=== PATIENT | female | born 1980 | race African-American/Black ===

== ENCOUNTER 2016-11-24 14:15 | Emergency (ER) | payer SELFPAY | END 2016-11-24 14:20 | disposition left against medical advice (07) | LOC: ER 14:15 | DX: Z53.21 Procedure and treatment not carried out due to patient leaving prior to being seen by health care provider (principal) ==

== ENCOUNTER 2016-11-30 23:57 | Emergency (ER) | payer BC ==
--- NOTE | 2016-12-01 01:04 | ER Document Report ---
HPI - HPI Patient complains to provider of: left ear feels clogged Onset: Other - 3 wks Onset/Duration: Persistent Quality of pain: Achy Pain Level: 1 Context: Patient complains of her left ear feeling like it is clogged up. Patient has been using an [id number] ear irrigation solution without improvement of her symptoms. Patient denies any fever. Patient denies any recent swimming. Associated Symptoms: Earache. denies: Fever Exacerbated by: Denies Relieved by: Denies Similar symptoms previously: No Recently seen / treated by doctor: Yes - ROS ROS below otherwise negative: Yes Systems Reviewed and Negative: Yes All other systems reviewed and negative - CONSTITUTIONAL Constitutional: DENIES: Fever - EENT EENT: REPORTS: Ear Pain - GASTROINTESTINAL Gastrointestinal: DENIES: Nausea - DERM Skin Color: Normal Skin Problems: None Past Medical History - General Information source: Patient - Social History Smoking Status: Current Every Day Smoker Frequency of alcohol use: None Drug Abuse: None Occupation: [employer] Family History: Reviewed & Not Pertinent - Past Medical History Cardiac Medical History: Reports: Hx Hypertension Renal/ Medical History: Denies: Hx Peritoneal Dialysis Surgical Hx: Negative - Immunizations Hx Diphtheria, Pertussis, Tetanus Vaccination: No Vertical Provider Document - CONSTITUTIONAL Agree With Documented VS: Yes Exam Limitations: No Limitations General Appearance: WD/WN, No Apparent Distress - INFECTION CONTROL TRAVEL OUTSIDE OF THE [place] IN LAST 30 DAYS: No - HEENT HEENT: Atraumatic, Normocephalic. negative: Pharyngeal Exudate, Pharyngeal Tenderness, Pharyngeal Erythema - NECK Neck: Normal Inspection, Supple - RESPIRATORY Respiratory: No Respiratory Distress - BACK Back: Normal Inspection - MUSCULOSKELETAL/EXTREMETIES Musculoskeletal/Extremeties: MAEW - NEURO Level of Consciousness: Awake, Alert, Appropriate - DERM Integumentary: Warm, Dry, No Rash Course - Re-evaluation Re-evalutation: 12/01/16 01:42 Ear irrigated with warm water and peroxide, patient tolerated well. Cerumen cleared from left external auditory canal. Normal left TM Discharge - Discharge Clinical Impression: Excessive cerumen in left ear canal Condition: Stable Disposition: HOME, SELF-CARE Instructions: Cerumen Impaction ([facility]) Additional Instructions: Return immediately for any new or worsening symptoms Followup with your primary care provider, call tomorrow to make a followup appointment Referrals: [facility] [Provider Group] - Follow up as needed
== END 2016-12-01 01:47 | disposition home or self-care (01) ==
LOC: ER 23:57
DX: H61.22 Impacted cerumen, left ear (principal); F17.200 Nicotine dependence, unspecified, uncomplicated; I10 Essential (primary) hypertension
CPT/HCPCS: 99282

== ENCOUNTER 2018-06-02 21:08 | Emergency (ER) | payer SELFPAY ==
[2018-06-02 21:19] VITALS: BP 150/84
--- NOTE | 2018-06-02 21:47 | ER Document Report ---
ED General - General Chief Complaint: Cough Stated Complaint: COUGH/ABDOMINAL PAIN Time Seen by Provider: 06/02/18 21:44 Mode of Arrival: Ambulatory Information source: Patient TRAVEL OUTSIDE OF THE [place] IN LAST 30 DAYS: No - HPI Patient complains to provider of: Severe cough, chest, and stomachache Onset: Other - 2 days ago Onset/Duration: Gradual, Persistent Severity: None Associated symptoms: Body/muscle aches, Chills, Nonproductive cough, Fever. de nies: Diarrhea, Nausea, Vomiting Exacerbated by: Denies Relieved by: Denies Similar symptoms previously: No Recently seen / treated by doctor: No Notes: 37-year-old -[place] female with history of tobacco abuse coming in today with severe dry cough that is causing pain in her chest and her stomach. Had a few days of a prodrome of fever and myalgias and malaise. Over the past couple days the cough is developed and it is causing a lot of pain in her chest or stomach every time she coughs. She is not having any vomiting or diarrhea. - Related Data Allergies/Adverse Reactions: No Known Allergies Allergy (Unverified 06/06/11 06:26) Past Medical History - General Information source: Patient - Social History Smoking Status: Current Every Day Smoker Family History: Reviewed & Not Pertinent - Past Medical History Cardiac Medical History: Reports: Hx Hypertension Renal/ Medical History: Denies: Hx Peritoneal Dialysis - Immunizations Hx Diphtheria, Pertussis, Tetanus Vaccination: No Review of Systems - Review of Systems Notes: Constitutional: No fevers. No chills. EENT: No eye redness. No eye pain. No ear pain. No sore throat. Cardiovascular: No chest pain. No palpitations. Respiratory: Positive cough. No shortness of breath. No respiratory distress. Gastrointestinal: Positive abdominal pain. No nausea, vomiting, or diarrhea. Genitourinary: Atraumatic. No lesions. No pain. No discharge. Musculoskeletal: Atraumatic. No swelling. No deformities. Skin: No rash or lesions. Lymphatic: No swollen lymph nodes. Neurologic: No headache. No syncope. Psychiatric: No suicidal or homicidal ideation. Physical Exam - Vital signs Vitals: Temp Pulse Resp BP Pulse Ox 99.5 F 85 18 150/84 H 98 06/02/18 21:17 06/02/18 21:17 06/02/18 21:17 06/02/18 21:17 06/02/18 21:17 - Notes Notes: General: Well-developed, well-nourished. In no acute distress. Non-toxic appearing. Cardiac: Well-perfused. Regular rate and rhythm. No murmurs, rubs, or gallops. Pulmonary: No respiratory distress. No cyanosis. Bilateral lung fiels are clear to auscultation. Abdominal: Non-distended. Non-rigid. Bowels sounds are present in all four quadrants. No guarding or rebound. HEENT: Head is atraumatic. Conjunctivae not reddened. No tearing. PERRL. EOMI. Orbits atraumatic. No periorbital swelling or erythema. Oropharynx is without erythema, swelling, or exudates. Neck: Supple. No adenopathy. No meningismus. Dermatologic: Warm with good turgor. No rash. Atraumatic. Chest: Atraumatic. No chest wall tenderness to palpation. Musculoskeletal: Moves all extremities well. No range of motion deficits. no muscular or joint tenderness. No paraspinal muscle tenderness. no midline spinal tenderness or step-off. Genitourinary: Examination deferred Neurologic: No gross neurologic deficits. Psychiatric: Normal mood. Course - Vital Signs Vital signs: Temp Pulse Resp BP Pulse Ox 99.5 F 85 18 150/84 H 98 06/02/18 21:17 06/02/18 21:17 06/02/18 21:17 06/02/18 21:17 06/02/18 21:17 Discharge - Discharge Clinical Impression: Upper respiratory infection Qualifiers: URI type: unspecified URI Qualified Code(s): J06.9 - Acute upper respiratory infection, unspecified Condition: Good Disposition: HOME, SELF-CARE Instructions: Upper Respiratory Illness ([facility]) Prescriptions: Promethazine HCl/Codeine [Prometh-Codein 6.25-10 mg/5 ml] 5 ml PO Q6HP PRN #120 ml PRN Reason: Referrals: [facility] [Provider Group] - Follow up as needed
== END 2018-06-02 21:56 | disposition home or self-care (01) ==
LOC: ER 21:08
DX: J06.9 Acute upper respiratory infection, unspecified (principal); R05 Cough; R10.9 Unspecified abdominal pain; R07.9 Chest pain, unspecified; M79.10 Myalgia, unspecified site; R50.9 Fever, unspecified; R53.81 Other malaise; F17.200 Nicotine dependence, unspecified, uncomplicated; I10 Essential (primary) hypertension
CPT/HCPCS: 99283

== ENCOUNTER 2018-12-20 23:16 | Emergency (ER) | payer BC, OTHER ==
--- NOTE | 2018-12-21 01:16 | ER Document Report ---
ED General - General Chief Complaint: Sore Throat Stated Complaint: COUGH/EAR PAIN Time Seen by Provider: 12/21/18 01:07 Notes: Patient presents with 1 month of intermittent cough who is a daily smoker. She also states that she had a sore throat approximately 2 weeks ago. She noticed a submandibular swollen lymph node that is painful today and comes in for evaluation. She does not have any oral problems including no teeth pain or gum pain. No known medical problems does not take any medications on a daily basis 12/21/18 01:12 TRAVEL OUTSIDE OF THE [place] IN LAST 30 DAYS: No - Related Data Allergies/Adverse Reactions: No Known Allergies Allergy (Unverified 06/06/11 06:26) Past Medical History - Social History Smoking Status: Unknown if Ever Smoked Family History: Reviewed & Not Pertinent Patient has suicidal ideation: No Patient has homicidal ideation: No - Past Medical History Cardiac Medical History: Reports: Hx Hypertension Renal/ Medical History: Denies: Hx Peritoneal Dialysis - Immunizations Hx Diphtheria, Pertussis, Tetanus Vaccination: No Review of Systems - Review of Systems Constitutional: No symptoms reported EENT: See HPI Cardiovascular: No symptoms reported Respiratory: See HPI Gastrointestinal: No symptoms reported Genitourinary: No symptoms reported Female Genitourinary: No symptoms reported Musculoskeletal: No symptoms reported Skin: No symptoms reported Hematologic/Lymphatic: No symptoms reported Neurological/Psychological: No symptoms reported Physical Exam - Vital signs Vitals: Temp Pulse Resp BP Pulse Ox 97.5 F 97 16 151/85 H 94 12/20/18 23:41 12/20/18 23:41 12/20/18 23:41 12/20/18 23:41 12/20/18 23:41 - General General appearance: Appears well, Alert - HEENT Head: Normocephalic, Atraumatic Eyes: Normal Conjunctiva: Normal Cornea: Normal Extraocular movements intact: Yes Pupils: PERRL Ears: Normal Tympanic membrane: Normal Sinus: Normal Nasal: Normal Mouth/Lips: Normal, Other - No gingival abscesses no poor dentition or pain with tooth or gum palpation on the left. Mucous membranes: Normal Pharynx: Normal Neck: Other - Small submandibular lymph node that is tender to touch not erythematous or warm - Respiratory Respiratory status: No respiratory distress Chest status: Nontender Breath sounds: Normal Chest palpation: Normal Course - Re-evaluation Re-evalutation: 12/21/18 01:11 12/21/18 01:13 Well-appearing patient with small shotty tender submandibular lymph node on the left. Normal oropharynx no abnormalities in her mouth. Her lungs are clear no crackles or wheezes. I will provide albuterol inhaler instructed her to use 1 to 2 puffs every 4 hours to see if this helps with her cough. Also discussed smoking cessation. She is to monitor the lymph node and any changes she is follow-up with her primary care or the emergency department for any worsening of symptoms. - Vital Signs Vital signs: Temp Pulse Resp BP Pulse Ox 97.5 F 97 16 151/85 H 94 12/20/18 23:41 12/20/18 23:41 12/20/18 23:41 12/20/18 23:41 12/20/18 23:41 Discharge - Discharge Clinical Impression: Shotty lymph nodes, Cough Condition: Good Disposition: HOME, SELF-CARE Additional Instructions: His monitor lymph node any worsening symptoms seek medical reevaluation within 1 week. Please use your albuterol puffer 1 to 2 puffs every 4 hours as needed for cough. Decreased your smoking should help with your cough. Prescriptions: Naproxen 500 mg PO BID #10 tablet Albuterol Sulfate [Proair HFA Inhalation Aerosol 8.5 gm MDI] 2 puff IH Q4H PRN #1 mdi PRN Reason:
[2018-12-21 01:29] VITALS: BP 149/93
== END 2018-12-21 01:28 | disposition home or self-care (01) ==
LOC: ER 23:16
DX: R59.0 Localized enlarged lymph nodes (principal); R05 Cough; J02.9 Acute pharyngitis, unspecified; I10 Essential (primary) hypertension
CPT/HCPCS: 99282

== ENCOUNTER → 2019-06-26 | Outpatient (CLI) | payer OTHER ==
[2019-06-26 11:12] LABS: A TYPE INFLUENZA AG NEGATIVE (NEGATIVE); B INFLUENZA AG NEGATIVE (NEGATIVE)
== END ==
LOC: RDC 09:47
PROVIDERS: ATTEND Registered Nurse
DX: Z20.828 Contact with and (suspected) exposure to other viral communicable diseases (principal)
CPT/HCPCS: 87070; 87635; 87804; 87880